=== PATIENT | male | born 1985 | race Caucasian/White ===

== ENCOUNTER → 2019-04-08 | Emergency (ER) | payer OTHER ==
[~2019-04-08] VITALS: Ht 170.2 cm; Wt 100.0 kg
[~2019-04-08] MED LIST: LORAZEPAM 2MG/ML CPJ IM ONE
[2019-04-08 16:05] VITALS: BP 148/98
== END ==
LOC: ER 16:02
DX: S01.81XA Laceration without foreign body of other part of head, initial encounter (principal); W54.0XXA Bitten by dog, initial encounter; Y93.89 Activity, other specified; Y92.89 Other specified places as the place of occurrence of the external cause; Y99.8 Other external cause status
CPT/HCPCS: 96372; 99283; J2060

== ENCOUNTER 2019-05-07 16:24 | Emergency (ER) | payer MEDICAID ==
[~2019-05-07] VITALS: Ht 175.3 cm; Wt 96.0 kg
[2019-05-07 16:54] VITALS: BP 153/79
[2019-05-07] MEDS ORDERED: IBUPROFEN 600MG TABLET PO ONE (17:30)
== END 2019-05-07 18:56 | disposition home or self-care (01) ==
LOC: ER 16:24
DX: S39.012A Strain of muscle, fascia and tendon of lower back, initial encounter (principal); M20.012 Mallet finger of left finger(s); F31.9 Bipolar disorder, unspecified; E11.9 Type 2 diabetes mellitus without complications; F12.10 Cannabis abuse, uncomplicated; W22.8XXA Striking against or struck by other objects, initial encounter; Y93.89 Activity, other specified; Y92.511 Restaurant or cafe as the place of occurrence of the external cause; Y99.8 Other external cause status
CPT/HCPCS: 29130; 73130; 99283

== ENCOUNTER 2020-09-06 10:37 | Inpatient (IN) | payer MEDICAID, OTHER ==
[~2020-09-06] VITALS: Ht 175.3 cm; Wt 106.7 kg
[2020-09-06] MEDS ORDERED: PANTOPRAZOLE 40MG DR TABLET PO ONE (11:30)
[2020-09-06 11:43] LABS: CLARITY URINE CLEAR (CLEAR); COLOR URINE YELLOW (YELLOW); KETONES URINE NEGATIVE (NEGATIVE); LEUKOCYTE ESTERASE URINE NEGATIVE (NEGATIVE); NITRITE URINE NEGATIVE (NEGATIVE); OCCULT BLOOD URINE NEGATIVE (NEGATIVE); PROTEIN URINE NEGATIVE (NEGATIVE); SPECIFIC GRAVITY URINE 1.015 (1.005-1.030)
[2020-09-06 12:12] LABS: *AMPHETAMINES SCREEN URINE NEGATIVE (NEGATIVE); *BARBITURATES SCREEN URINE NEGATIVE (NEGATIVE); *BENZODIAZEPINES SCREEN URINE NEGATIVE (NEGATIVE); *COCAINE SCREEN URINE NEGATIVE (NEGATIVE); METHADONE URINE SCREEN NEGATIVE (NEGATIVE); OPIATES URINE SCREEN NEGATIVE (NEGATIVE)
[2020-09-06 12:13] LABS: CANNABINOID URINE SCREEN PRESUMTIVE POSITIVE (NEGATIVE); PHENCYCLIDINE URINE SCREEN NEGATIVE (NEGATIVE)
[2020-09-06 12:16] LABS: EOSINOPHILS % 1.1 % (0.0-5.0); HEMATOCRIT. 44.2 % (42.0-52.0); HEMOGLOBIN. 14.9 g/dL (14.0-18.0); LYMPHOCYTES % 42.9 % (20.0-50.0); MEAN CORPUSCULAR HEMOGLOBIN 28.7 pg (28.0-32.0); MEAN PLATELET VOLUME 9.3 fl (7.4-10.4); MONOCYTES % 7.2 % (2.0-8.0); NEUTROPHILS % 47.8 % (40.0-76.0); PLATELET 270 x1000/uL (130-400); RED CELL DISTRIBUTION WIDTH 14.5 % (11.6-14.6)
[2020-09-06 12:21] LABS: CHLORIDE 105 mEq/L (98-107)
[2020-09-06 12:26] LABS: ETHANOL BLOOD 86 mg/dL
[2020-09-06] MEDS ORDERED: ONDANSETRON HCL 4MG/2ML INJ IV ONE ×2 (14:15→23:00)
[2020-09-06] MEDS ORDERED: SODIUM CHLORIDE 0.9% 1,000 ML IV ONE (15:15)
[2020-09-06] MEDS ORDERED: MORPHINE SULFATE 4 MG/ML CPJ (NOT FOR IM USE) IV ONE ×2 (15:15→22:15)
[2020-09-06] MEDS ORDERED: KCL 20MEQ/100ML PREMIX 100 ML IV ONE (22:00)
[2020-09-07 00:24] VITALS: BP 109/73
[2020-09-07] MEDS ORDERED: MAGNESIUM/ALUMINUM HYDROXIDE/SIMETHICONE 30ML UDC PO PRN (02:15)
[2020-09-07] MEDS ORDERED: ACETAMINOPHEN 325MG TABLET PO PRN (02:15)
[2020-09-07] MEDS ORDERED: ONDANSETRON HCL 4MG/2ML INJ IV PRN (02:15)
[2020-09-07] MEDS ORDERED: IPRATROPIUM/ALBUTEROL 0.5-3(2.5)MG/3ML NEB NEB PRN (02:15)
[2020-09-07] MEDS ORDERED: DOCUSATE SODIUM 100MG CAPSULE PO PRN (02:15)
[2020-09-07] MEDS ORDERED: LORAZEPAM 2MG/ML CPJ IV PRN (02:15)
[2020-09-07] MEDS ORDERED: NA PHOS,M-B/NA PHOS,DI-BA ENEMA 118ML PR PRN (02:15)
[2020-09-07] MEDS ORDERED: DIPHENHYDRAMINE 50MG/ML VIAL IV PRN (02:15)
[2020-09-07] MEDS ORDERED: MORPHINE SULFATE 2 MG/ML CPJ (NOT FOR IM USE) IV PRN (02:15)
[2020-09-07] MEDS ORDERED: GUAIFENESIN 200MG/10ML SUGAR FREE UDC PO PRN (02:15)
[2020-09-07] MEDS ORDERED: CLONIDINE 0.1MG TABLET PO PRN (02:15)
[2020-09-07] MEDS: SODIUM CHLORIDE 0.45% 1,000 ML IV SCH ×2 (04:25→15:01)
[2020-09-07] MEDS: HYDROCODONE/ACETAMINOPHEN 5/325MG TABLET PO PRN ×2 (05:34→09:58)
[2020-09-07 06:49] LABS: CHLORIDE 107 mEq/L (98-107)
[2020-09-07 08:00] VITALS: BP 129/70
[2020-09-07 12:00] VITALS: BP 135/71
[2020-09-07 15:52] LABS: BASOPHILS % 0.7 % (0.0-2.0); EOSINOPHILS % 1.4 % (0.0-5.0); HEMATOCRIT. 44.2 % (42.0-52.0); HEMOGLOBIN. 14.8 g/dL (14.0-18.0); LYMPHOCYTES % 31.6 % (20.0-50.0); MEAN CORPUSCULAR HEMOGLOBIN 29.1 pg (28.0-32.0); MEAN CORPUSCULAR VOLUME 86.8 fL (80.0-94.0); MEAN PLATELET VOLUME 9.4 fl (7.4-10.4); MONOCYTES % 7.1 % (2.0-8.0); NEUTROPHILS % 59.2 % (40.0-76.0); PLATELET 253 x1000/uL (130-400); RED BLOOD CELL COUNT 5.09 mill/uL (4.7-6.1)
[2020-09-07 16:00] VITALS: BP 149/90
[2020-09-07] MEDS: PANTOPRAZOLE SODIUM 40 MG/VIAL IV SCH (16:26)
[2020-09-07 20:00] VITALS: BP 115/69
[2020-09-08] VITALS: BP 118/68
[2020-09-08] MEDS: SODIUM CHLORIDE 0.45% 1,000 ML IV SCH (01:30)
[2020-09-08 04:00] VITALS: BP 114/65
[2020-09-08 06:00] VITALS: BP 112/55
[2020-09-08 06:52] LABS: BASOPHILS % 0.8 % (0.0-2.0); EOSINOPHILS % 3.8 % (0.0-5.0); HEMATOCRIT. 45.8 % (42.0-52.0); HEMOGLOBIN. 15.3 g/dL (14.0-18.0); LYMPHOCYTES % 39.9 % (20.0-50.0); MEAN CORPUSCULAR HEMOGLOBIN 29.1 pg (28.0-32.0); MEAN CORPUSCULAR VOLUME 87.2 fL (80.0-94.0); MEAN PLATELET VOLUME 9.9 fl (7.4-10.4); MONOCYTES % 7.5 % (2.0-8.0); PLATELET 234 x1000/uL (130-400); RED BLOOD CELL COUNT 5.25 mill/uL (4.7-6.1); RED CELL DISTRIBUTION WIDTH 14.9 % (11.6-14.6)
[2020-09-08 07:18] LABS: CHLORIDE 105 mEq/L (98-107)
[2020-09-08 07:27] LABS: HDL CHOLESTEROL 45 mg/dL (40-59); LDL CHOLESTEROL 173 mg/dL (5-100); T4 FREE 1.36 ng/dL (0.76-1.46)
[2020-09-08 08:00] VITALS: BP 125/57
[2020-09-08] MEDS: PANTOPRAZOLE SODIUM 40 MG/VIAL IV SCH (08:51)
[2020-09-08 09:52] VITALS: BP 104/74
[2020-09-08 12:00] VITALS: BP 104/74
[2020-09-08] MEDS ORDERED: ATORVASTATIN CALCIUM 20MG TABLET PO SCH (21:00)
== END 2020-09-08 13:52 | disposition home or self-care (01) | DRG 378 ==
LOC: ER 10:42 → EDBEDREQ 16:23 → 5WST 20:28 → EDBEDREQ 20:32 → EDBEDREQTM 20:32 → ENRESERV 22:16
PROVIDERS: ADMIT Internal Medicine; ATTEND Internal Medicine
DX: K92.2 Gastrointestinal hemorrhage, unspecified (principal); R04.2 Hemoptysis; K92.0 Hematemesis; K40.90 Unilateral inguinal hernia, without obstruction or gangrene, not specified as recurrent; D64.9 Anemia, unspecified; E11.9 Type 2 diabetes mellitus without complications; E78.5 Hyperlipidemia, unspecified; E86.0 Dehydration; I10 Essential (primary) hypertension; I25.10 Atherosclerotic heart disease of native coronary artery without angina pectoris; F31.9 Bipolar disorder, unspecified; J84.10 Pulmonary fibrosis, unspecified; W34.00XA Accidental discharge from unspecified firearms or gun, initial encounter
CPT/HCPCS: 36415; 71250; 74176; 80048; 80053; 80061; 80305; 80320; 81003; 82941; 82962; 83605; 83880; 84439; 84443; 84484; 85025; 85651; 86850; 86900; 93005; 99285; C9113; J2270; J2405; J3480; J7030; G0480